=== PATIENT | female | born 2000 | race Caucasian/White ===

== ENCOUNTER 2024-01-28 03:17 | Emergency (ER) | payer MEDICAID, OTHER ==
[~2024-01-28] VITALS: Ht 160 cm; Wt 47.6 kg
[2024-01-28] MEDS ORDERED: TDAP [DIPH/PERTUSSIS/TET] 0.5 ML VIAL IM ONE (04:35)
[2024-01-28] MEDS: TDAP [DIPH/PERTUSSIS/TET] 0.5 ML VIAL IM ONE (04:38)
[2024-01-28] MEDS: IBUPROFEN 400 MG TABLET PO ONE (04:50)
[2024-01-28] MEDS ORDERED: AMOX-430 PO (05:25)
[2024-01-28] MEDS ORDERED: AMOX/CLAVULANATE 875 MG TABLET ONE (05:26)
[2024-01-28] MEDS: AMOX/CLAVULANATE 875 MG TABLET PO ONE (05:30)
[2024-01-28 05:35] VITALS: BP 121/81; TEMP 98.4; O2SAT 100
== END 2024-01-28 05:35 | disposition home or self-care (01) ==
LOC: ER 03:22
DX: M25.521 Pain in right elbow (principal); M79.89 Other specified soft tissue disorders; W55.01XA Bitten by cat, initial encounter; Y93.89 Activity, other specified; Y92.89 Other specified places as the place of occurrence of the external cause; Y99.8 Other external cause status
CPT/HCPCS: 73080-TC; 90715